=== PATIENT | male | born 1965 | race Caucasian/White ===

== ENCOUNTER 2025-09-10 14:07 | Emergency (ER) | payer OTHER ==
[~2025-09-10] VITALS: Ht 180.3 cm; Wt 91.0 kg
[2025-09-10 14:10] VITALS: O2SAT 98
[2025-09-10] MEDS: KETOROLAC 30MG/ML VIAL IM ONE (16:09)
[2025-09-10] MEDS: LIDOCAINE 5% PATCH TOP SCH (16:10)
[2025-09-10] MEDS ORDERED: LIDO-53 TP (17:04)
[2025-09-10 17:12] VITALS: BP 150/90; PULSE 80; RESP 16; TEMP 36.8; O2SAT 98
== END 2025-09-10 17:14 | disposition home or self-care (01) ==
LOC: ER 14:07
DX: M54.6 Pain in thoracic spine (principal); I10 Essential (primary) hypertension; V49.9XXA Car occupant (driver) (passenger) injured in unspecified traffic accident, initial encounter; Y93.89 Activity, other specified; Y92.89 Other specified places as the place of occurrence of the external cause; Y99.8 Other external cause status
CPT/HCPCS: 99283; 72070; J1885